=== PATIENT | female | born 2000 | race Two or more races ===

== ENCOUNTER → 2024-02-18 | Outpatient (BNVA) | payer BC, SELFPAY | END | disposition home or self-care (01) | PROVIDERS: PCP Nurse Practitioner Family; Referring Provider Nurse Practitioner Family; Visit Provider Nurse Practitioner Family | DX: Z71.2 Person consulting for explanation of examination or test findings (principal); Z13.828 Encounter for screening for other musculoskeletal disorder; R14.0 Abdominal distension (gaseous); K59.00 Constipation, unspecified; R11.0 Nausea; R20.2 Paresthesia of skin; R42 Dizziness and giddiness; Z13.220 Encounter for screening for lipoid disorders; Z13.1 Encounter for screening for diabetes mellitus | CPT/HCPCS: 90471; 90686; 99215 ==

== ENCOUNTER → 2024-02-20 | Outpatient (CLI) | payer BC, SELFPAY ==
--- NOTE | 2024-02-20 13:07 | XR_ITS ---
Examination: Scoliosis survey 2, views. Technique: AP standing thoracic, AP standing lumbar spine, two views. Exam date and time: February 20, 2024 1309 hours INDICATIONS: Back pain 2 years FINDINGS: No measurable scoliosis Adequate bone density Normal heart size Lungs are clear Intrauterine device lower pelvis Impression: No measurable scoliosis
== END | disposition home or self-care (01) ==
LOC: CDIM 13:01
PROVIDERS: PCP Nurse Practitioner Family; Referring Provider Nurse Practitioner Family; Visit Provider Nurse Practitioner Family
DX: Z13.828 Encounter for screening for other musculoskeletal disorder (principal); M54.9 Dorsalgia, unspecified
CPT/HCPCS: 72082

== ENCOUNTER → 2024-02-25 | Outpatient (BNVA) | payer BC, SELFPAY | END | disposition home or self-care (01) | PROVIDERS: PCP Nurse Practitioner Family; Referring Provider Nurse Practitioner Family; Visit Provider Nurse Practitioner Family | DX: Z71.2 Person consulting for explanation of examination or test findings (principal); D50.9 Iron deficiency anemia, unspecified; E55.9 Vitamin D deficiency, unspecified; B96.29 Other Escherichia coli [E. coli] as the cause of diseases classified elsewhere | CPT/HCPCS: 81001; 87804; 87811; 99215 ==

== ENCOUNTER → 2024-02-26 | Outpatient (CLI) | payer BC, SELFPAY ==
--- NOTE | 2024-02-26 | XR_ITS ---
Examination: PA lateral chest 2 views TECHNIQUE: Upright PA lateral chest 2 views Exam date and time: February 26, 2024 1245 hours Comparison May 14, 2023 INDICATIONS: Shortness of breath beginning 3 days ago. FINDINGS: Normal heart size Lungs are clear Mild chronic osteoporotic compressions lower dorsal vertebral bodies IMPRESSION: No active disease
== END | disposition home or self-care (01) ==
PROVIDERS: PCP Nurse Practitioner Family; Referring Provider Nurse Practitioner Family; Visit Provider Nurse Practitioner Family
DX: R50.9 Fever, unspecified (principal); R06.02 Shortness of breath
CPT/HCPCS: 71046

== ENCOUNTER → 2024-02-27 | Outpatient (BNVA) | payer BC, SELFPAY | END | disposition home or self-care (01) | PROVIDERS: PCP Nurse Practitioner Family; Referring Provider Nurse Practitioner Family; Visit Provider Nurse Practitioner Family | DX: Z71.2 Person consulting for explanation of examination or test findings (principal) | CPT/HCPCS: 99212 ==

== ENCOUNTER → 2024-03-17 | Outpatient (CLI) | payer BC, SELFPAY ==
--- NOTE | 2024-03-17 08:43 | XR_ITS ---
Examination: MRI brain without intravenous contrast. Date and time of exam: March 17, 2024 0916 hours INDICATIONS: Headaches dizziness blurred vision episodes beginning 3 months ago Technique: Multiple axial and sagittal images of the brain obtained. Siemens high-resolution 1.5 Marissa short bore scanners utilized. Sagittal sections, T1-weighted, TR 500, TE 14, are performed. Axial sections proton-density and T2-weighted have been obtained. Inversion recovery axial images, TR 9, 260, TE 111, TI 2500. Diffusion weighted images, axial sections, TR 4800, TE 128, B value 1000 Axial sections, ADC map, TR 4800, TE 128 Findings: Enlargement of the sella turcica is not present. The optic chiasm and infundibular are not remarkable. Prepontine and interpeduncular cisterns are not enlarged. There is no localized enlargement of the medulla or susie. Fourth ventricle and cerebellar tonsils appear normal in position. No subacute area of hemorrhage density is seen. Mass in the cerebellopontine angle region is not evident. Globes symmetrical. Orbital musculature including medial lateral rectus muscles do not exhibit abnormality. Diffusion-weighted images demonstrate no focus of restricted diffusion. Increased white matter signal not seen Mass effect upon the ventricular system is not identified. Impression: Negative for acute hemorrhage mass effect or midline shift No acute infarct No MR findings diagnostic for demyelinating disease
== END | disposition home or self-care (01) ==
PROVIDERS: PCP Nurse Practitioner Family; Referring Provider Nurse Practitioner Family; Visit Provider Nurse Practitioner Family
DX: R42 Dizziness and giddiness (principal)
CPT/HCPCS: 70551

== ENCOUNTER → 2024-03-21 | Outpatient (BNVA) | payer BC, SELFPAY | END | disposition home or self-care (01) | PROVIDERS: PCP Nurse Practitioner Family; Referring Provider Nurse Practitioner Family; Visit Provider Nurse Practitioner Family | DX: E66.01 Morbid (severe) obesity due to excess calories (principal); Z68.41 Body mass index [BMI] 40.0-44.9, adult; R73.03 Prediabetes; D50.9 Iron deficiency anemia, unspecified; E55.9 Vitamin D deficiency, unspecified; Z71.2 Person consulting for explanation of examination or test findings | CPT/HCPCS: 99213 ==

== ENCOUNTER → 2024-04-18 | Outpatient (BNVA) | payer BC, SELFPAY | END | disposition home or self-care (01) | PROVIDERS: PCP Nurse Practitioner Family; Referring Provider Nurse Practitioner Family; Visit Provider Nurse Practitioner Family | DX: E66.01 Morbid (severe) obesity due to excess calories (principal); Z68.41 Body mass index [BMI] 40.0-44.9, adult; R73.03 Prediabetes; Z71.3 Dietary counseling and surveillance | CPT/HCPCS: 99213 ==

== ENCOUNTER 2024-05-17 15:40 | Emergency (ER) | payer BC, SELFPAY ==
[2024-05-17 15:42] VITALS: BMI 41.5
[2024-05-17 16:23] VITALS: BP 100/62; PULSE 100; RESP 20; TEMP 36.5; O2SAT 99
--- NOTE | 2024-05-17 16:41 | XR_ITS ---
Examination: Abdomen sonogram, Limited Date and time of exam: May 17, 2024 1655 hrs. Indications: Right upper abdominal pain with nausea beginning 3 days ago Technique: Real-time osorio scale transabdominal sonographic images of the upper abdomen obtained. Findings: Multiple gallstones, the largest 19 mm Gallbladder wall 0.3 cm Common bile duct 0.2 cm Pancreatic head 3.1 cm Liver 18.8 cm lobular contour fatty infiltration no focal liver lesions Normal hepatopedal portal venous flow Patent IVC Impression: Cholelithiasis, negative for cholecystitis Hepatomegaly, fatty liver, primary hepatocellular disease
--- NOTE | 2024-05-17 16:44 | PD.EDRME ---
Rapid Medical Screening Exam RME Arrival date/time: 05/17/24 15:40 23-year-old female presents to the emergency department with complaints of right upper quadrant abdominal pain since Sunday. Associated with nausea vomiting. I have greeted and performed a focused initial assessment of this patient. Initial appropriate labs ordered at this time. A comprehensive ED assessment and evaluation of the patient and analysis of all test and completion of medical decision making process will be conducted by additional ED provider. Chief Complaint: Abdominal Pain Time Seen by Provider: 05/17/24 16:23 Vital signs: Vital Signs Temperature 97.7 F 05/17/24 16:23 Pulse Rate 100 05/17/24 16:23 Respiratory Rate 20 05/17/24 16:23 Blood Pressure 100/62 05/17/24 16:23 Pulse Oximetry (%) 99 05/17/24 16:23 Oxygen Delivery Method Room Air 05/17/24 16:23
[2024-05-17] MEDS: ONDANSETRON ODT 4 MG TABRAP PO (16:50)
[2024-05-17] MEDS: HYDROcodone/APAP 5/325 TABLET 1 TAB PO (16:50)
[2024-05-17 17:39] LABS: Basophils % (Auto) 0 % (0-2.5); Eosinophils # (Auto) 0.2 Thou/mm3 (0.0-0.5); Eosinophils % (Auto) 2 % (0-10); Hematocrit 32.9 % (36.0-46.0); Hemoglobin 9.6 g/dL (12.0-16.0); Immature Granulocytes % (Auto) 0 % (0-0); Immature Granulocytes Auto 0.03 Thou/mm3 (0.00-0.00); Lymphocytes # (Auto) 1.9 Thou/mm3 (1.0-4.8); Lymphocytes % (Auto) 15 % (10-50); Mean Corpuscular HGB Conc 29.2 g/dl (31.0-37.0); Mean Corpuscular Hemoglobin 17.9 pg (25.0-35.0); Mean Corpuscular Volume 61 fL (80-100); Monocytes # (Auto) 0.7 Thou/mm3 (0.0-0.8); Monocytes % (Auto) 6 % (0-12); Neutrophils # (Auto) 9.8 Thou/mm3 (1.8-7.7); Neutrophils % (Auto) 77 % (37-80); Nucleated Red Blood Cell % 0 /100 WBC (0); Platelet Count 432 Thou/mm3 (140-440); Red Blood Count 5.36 Miln/mm3 (4.00-5.20); White Blood Count 12.7 Thou/mm3 (3.6-11.0)
[2024-05-17 17:52] LABS: Alanine Aminotransferase 23 U/L (10-49); Albumin, Serum 4.4 gm/dL (3.5-5.0); Albumin/Globulin Ratio 1.5 (1.2-2.2); Alkaline Phosphatase 68 U/L (46-116); Anion Gap 9 (7-16); Aspartate Amino Transferase 18 U/L (0-34); BUN/Creatinine Ratio 14 Ratio (12-20); Bilirubin,Total 0.4 mg/dL (0.3-1.2); Blood Urea Nitrogen 15 mg/dL (9-23); Calcium 9.4 mg/dL (8.3-10.6); Calcium (Corrected) 9.4 mg/dL (8.5-10.1); Carbon Dioxide 24.3 mMol/L (20.0-31.0); Chloride 106 mMol/L (98-107); Creatinine (Component) 1.1 mg/dL (0.6-1.3); Estimated Creatinine Clearance 98.2 mL/min (>60); Globulin 2.9 gm/dL (2.3-3.5); Glucose 98 mg/dL (74-106); Lipase 34 U/L (12-53); Osmolality,Calculated 278 (275-295); Potassium 3.9 mMol/L (3.4-5.1); Sodium 139 mMol/L (136-145); Total Protein 7.3 gm/dL (5.7-8.2); eGFR > 60 See Note
[2024-05-17 18:26] LABS: Collection Type, Urine Clean Catch
[2024-05-17 18:34] LABS: Bacteria,Urine Rare; Bilirubin,Urine Negative (Negative); Blood,Urine Negative (Negative); Clarity,Urine Clear (Clear/Hazy); Color,Urine Yellow (Lt Yel-Yel); Glucose, Urine Negative (Negative); Ketones,Urine 1+ (Negative); Leukocyte Esterase,Urine Positive (Negative); Nitrite,Urine Negative (Negative); Protein,Urine Trace (Neg - Trace); RBC,Urine 6 /hpf (0-3); Specific Gravity,Urine 1.033 (1.001-1.035); Squamous Epithelial Cell,Urine 9 /hpf (0-5); Urobilinogen,Urine Negative mg/dL (0.0-1.0); WBC,Urine 2 /hpf (0-5)
[2024-05-17 18:38] LABS: HCG Qualitative,Urine Negative
--- NOTE | 2024-05-17 19:14 | EDNOTE_ITS ---
<Statement entered by Dorene Severino MD - 05/17/24 23:42> As co-signing physician, I was present and available for consult prn. I concur with the plan and care as documented by the midlevel provider. ED Abdominal Pain RME/HPI General Chief Complaint: Abdominal Pain Stated complaint: LR abdominal pain, right flank pain, constipation Time seen by provider: 05/17/24 16:23 Arrival date/time: 05/17/24 15:40 RME / HPI RME / HPI narrative: 23-year-old female patient came in for evaluation regarding right upper quadrant pain. Onset of symptoms since 3 days prior to ER visit as sudden onset of right upper quadrant pain, described as crampy, it comes and goes, radiating to the flank area. Also complained of nausea vomiting and constipation. Denies any other complaints or medications taken prior to arrival. Denies any fever. Related Data Previous Rx's ?Medication ?Instructions ?Recorded ergocalciferol (vitamin D2) 1,250 50,000 unit PO QWEEK 12 weeks #12 03/21/24 mcg (50,000 unit) capsule caps ferrous sulfate 325 mg (65 mg 325 mg PO QDAY #90 tabs 03/21/24 iron) tablet,delayed release dicyclomine 20 mg tablet 20 mg PO TID PRN abdominal p ain 05/17/24 #30 tabs ketorolac 10 mg tablet 10 mg PO Q8H PRN pain 5 days #20 05/17/24 tabs pantoprazole 40 mg tablet,delayed 40 mg PO QDAY #20 ta bs 05/17/24 release (Protonix) Allergies Allergy/AdvReac Type Severity Reaction Status Date / Time No Known Allergies Allergy Verified 04/18/24 15:49 Review of Systems Review of Systems Narrative Review of Systems: Review of system reviewed and within normal limits except mentioned in HPI ED Exam Narrative Physical exam: VITAL SIGNS: Reviewed. GENERAL APPEARANCE: Alert and interactive, follows commands, no acute distress, HEAD AND FACE: Non-traumatic. ENT: PERRL, pink conjunctivitis, eyelid no trauma, Mucous membrane moist. NECK: Supple, nontender, no nuchal rigidity. CHEST: No tenderness, no crepitus, no paradoxical movement, no retractions. LUNGS: Clear, well ventilated, symmetric, no rales, no wheezing, no ronchi, no stridor, good breath sounds bilaterally. HEART: Regular rate, regular rhythm, no murmur, no gallops. ABDOMEN: Soft, positive bowel sounds, nondistended, no guarding, right upper quadrant tenderness,, no rebound, no masses, RECTAL: Deferred. GENITAL: Deferred. NEUROLOGICAL: Gross motor function intact sensory function intact, Appropriate for age. MUSCULOSKELETAL: low back nontender, full range of motion. EXTREMITIES: Nontender, full range of motion. SKIN: Color pink, dry, no rash, no lacerations, no abrasions, no contusions. LYMPHATICS: Deferred. Course Quality Measures none Orders Category Date Time Status US gall bladder Stat Exams 05/17/24 16:41 Completed CBC Stat Lab 05/17/24 17:26 Completed Comprehensive Metabolic Panel Stat Lab 05/17/24 17:26 Completed HCG Qualitative,Urine Stat Lab 05/17/24 17:57 Completed Lipase Stat Lab 05/17/24 17:26 Completed Urinalysis Stat Lab 05/17/24 17:57 Completed HYDROcodone*/APAP 5/325 [Portis 5/325] Med 05/17/24 16:44 Discontinued 1 tab PO X1 ONE Ketorolac Inj [Toradol Inj] Med 05/17/24 18:47 Discontinued 30 mg IM X1 ONE Ondansetron Odt [Zofran Odt] Med 05/17/24 16:44 Discontinued 4 mg PO X1 ONE Vital Signs Vital signs: Vital Signs Temperature 97.7 F 05/17/24 16:23 Pulse Rate 100 05/17/24 16:23 Respiratory Rate 20 05/17/24 16:23 Blood Pressure 100/62 05/17/24 16:23 Pulse Oximetry (%) 99 05/17/24 16:23 Oxygen Delivery Method Room Air 05/17/24 16:23 Abdominal Pain MDM MDM Narrative MDM Narrative:: 23-year-old female patient came in for evaluation regarding right upper quadrant pain. Onset of symptoms since 3 days prior to ER visit as sudden onset of right upper quadrant pain, described as crampy, it comes and goes, radiating to the flank area. Also complained of nausea vomiting and constipation. Denies any other complaints or medications taken prior to arrival. Denies any fever. Ultrasound of gallbladder showed cholelithiasis with no sign of acute gastritis. Patient's workup today all came back with leukocytosis 12.7, CMP normal, LFTs normal total bili is normal urinalysis no UTI Results discussed with the patient. Patient received Portis and Toradol IM with significant improvement of pain. Patient was advised to follow-up with PCP and for referral to general surgeon for definitive management of the gallstone. Patient was also advised to return to emergency room if patient develop fever, worsening abdominal pain. Patient agrees with the plan. Patient data External records reviewed:: None Clinical information provided by:: none Social determinants that could affect healthcare access:: none Patient has the following chronic illnesses:: None How is presenting disease/condition affected by chronic disease/condition?: no chronic disease Evaluation data The following diagnostics were reviewed and interpreted by me:: lab results and radiology exam(s) Lab and/or radiology exams considered but not ordered:: None Interpretation Summary: See results in MDM Medications / Prescriptions Medications or Prescriptions considered but not ordered:: None Medication administrations:: Medication Administration History Discontinued Medications Hydrocodone Bitart/Acetaminophen (Hydrocodone/Apap 5/325 Tablet) 1 tab PO X1 ONE Stop: 05/17/24 16:45 Last Admin: 05/17/24 16:50 Dose: 1 tab Documented By: Ketorolac Tromethamine (Ketorolac Inj 30 Mg/Ml Vial) 30 mg IM X1 ONE Stop: 05/17/24 18:48 Ondansetron HCl (Ondansetron Odt 4 Mg Tabrap) 4 mg PO X1 ONE; Protocol Stop: 05/17/24 16:45 Last Admin: 05/17/24 16:50 Dose: 4 mg Documented By: Portis Toradol and Zofran Consultations Consultation(s) initiated? (list below): No Diagnosis Differential diagnosis abdominal pain: abdominal pain, constipation and pancreatitis Most likely diagnosis given after review of the tests above:: Biliary colic, gallstone Admission Indicated Admission indicated?: not indicated Admission Request Was there a request for admission?: No Disposition Plan Disposition Plan: Discharge Discharge Attestation Discharge Attestation: The patient was given an opportunity to ask questions and understood the discharge instructions. Discharge instructions specifically effects, indications for sooner follow up or return to the emergency department, and the expected course of current diagnosis. Patient condition: Stable Discharge Plan Plan Patient Disposition: HOME (Self Care) Disposition Comment: Stable Prescriptions/Referrals Prescriptions/Med Rec: New dicyclomine 20 mg tablet 20 mg PO TID PRN (Reason: abdominal pain) Qty: 30 0RF ketorolac 10 mg tablet 10 mg PO Q8H PRN (Reason: pain) 5 Days Qty: 20 0RF pantoprazole [Protonix] 40 mg tablet,delayed release (DR/EC) 40 mg PO QDAY Qty: 20 0RF No Action ergocalciferol (vitamin D2) 1,250 mcg (50,000 unit) capsule 50,000 unit PO QWEEK 84 Days Qty: 12 0RF ferrous sulfate 325 mg (65 mg iron) tablet,delayed release (DR/EC) 325 mg PO QDAY Qty: 90 0RF Rx Instructions: take fasting Referrals: Mirna [facility] [facility],Lissett Hood [employer] [Primary Care Provider] - In 1 week Problem List Clinical Impression: Gallstone Patient/Caregiver Discharge Instructions Discharge Activity: activity as tolerated Education Materials: ED Gallstones with Biliary Colic Additional Instructions: Thank you for the opportunity for serving you today. You are stable for discharged . You are advised to: Follow-up with your PCP in 1 to 2 days and as per referral to general surgeon Please avoid eating fatty, greasy fried food Return to ED for worsening of symptoms Increase oral fluids Take medication as prescribed Print Language: Chinese Stand Alone Forms: Britta Award Info., Patient Portal Info Letter PA/MANJU Supervising Physician AUSTEN/MANJU Supervising Physician: Md Dario
[2024-05-17] MEDS: KETOROLAC INJ 30 MG/ML VIAL IM (19:55)
== END 2024-05-17 19:59 | disposition home or self-care (01) ==
PROVIDERS: Nurse Practitioner Primary Care; Emergency Provider Emergency Medicine; PCP Nurse Practitioner Family
DX: K80.20 Calculus of gallbladder without cholecystitis without obstruction (principal)
CPT/HCPCS: 36415; 76705; 80053; 81001; 81025; 83690; 85025; 96372; 99284; J1885; Q0162; A9270

== ENCOUNTER → 2024-05-21 | Outpatient (BNVA) | payer BC, SELFPAY | END | disposition home or self-care (01) | PROVIDERS: PCP Nurse Practitioner Family; Referring Provider Nurse Practitioner Family; Visit Provider Nurse Practitioner Family | DX: Z76.89 Persons encountering health services in other specified circumstances (principal); Z71.2 Person consulting for explanation of examination or test findings | CPT/HCPCS: 99214 ==

== ENCOUNTER 2024-07-01 08:42 | Emergency (ER) | payer BC, SELFPAY ==
[2024-07-01 08:43] VITALS: BMI 43.2
--- NOTE | 2024-07-01 08:47 | XR_ITS ---
Examination: Abdomen sonogram, Limited Date and time of exam: July 01, 2024 0943 hrs. Indications: Right upper abdominal pain today, history gallstones Technique: Real-time osorio scale transabdominal sonographic images of the upper abdomen obtained. Findings: Multiple gallstones Gallbladder wall 0.3 cm no edema Common bile duct 0.3 cm Pancreatic head 2.1 cm Liver 17.4 cm fatty infiltration no focal liver lesions Normal hepatopedal portal venous flow Patent IVC Impression: Cholelithiasis, negative for cholecystitis Mild hepatomegaly fatty liver
[2024-07-01 08:49] VITALS: BP 155/95; PULSE 87; RESP 18; TEMP 36.4; O2SAT 100
--- NOTE | 2024-07-01 08:52 | PD.EDRME ---
Rapid Medical Screening Exam RME Arrival date/time: 07/01/24 08:42 23-year-old female presents to the emergency dept today complains of upper abdominal pain nausea vomiting patient reports history of cholelithiasis Chief Complaint: Back Pain/Injury Time Seen by Provider: 07/01/24 08:47 Vital signs: Vital Signs Temperature 97.6 F 07/01/24 08:49 Pulse Rate 87 07/01/24 08:49 Respiratory Rate 18 07/01/24 08:49 Blood Pressure 155/95 H 07/01/24 08:49 Pulse Oximetry (%) 100 07/01/24 08:49 Oxygen Delivery Method Room Air 07/01/24 08:49
[2024-07-01] MEDS: METOCLOPRAMIDE INJ 5 MG/ML VIAL 2 ML 10 MG IM (09:04)
[2024-07-01] MEDS: KETOROLAC INJ 30 MG/ML VIAL IM (09:04)
[2024-07-01 09:53] LABS: Collection Type, Urine Clean Catch
[2024-07-01 10:08] LABS: Basophils % (Auto) 0 % (0-2.5); Eosinophils # (Auto) 0.4 Thou/mm3 (0.0-0.5); Eosinophils % (Auto) 6 % (0-10); Hemoglobin 9.4 g/dL (12.0-16.0); Immature Granulocytes % (Auto) 0 % (0-0); Immature Granulocytes Auto 0.01 Thou/mm3 (0.00-0.00); Lymphocytes # (Auto) 2.4 Thou/mm3 (1.0-4.8); Lymphocytes % (Auto) 34 % (10-50); Mean Corpuscular HGB Conc 28.5 g/dl (31.0-37.0); Mean Corpuscular Volume 63 fL (80-100); Monocytes # (Auto) 0.3 Thou/mm3 (0.0-0.8); Monocytes % (Auto) 4 % (0-12); Neutrophils % (Auto) 56 % (37-80); Nucleated Red Blood Cell % 0 /100 WBC (0); Platelet Count 404 Thou/mm3 (140-440); RDW Standard Deviation 39.5 fL (36.4-46.3); Red Blood Count 5.23 Miln/mm3 (4.00-5.20); White Blood Count 7.2 Thou/mm3 (3.6-11.0)
[2024-07-01 10:11] LABS: Bacteria,Urine Rare; Bilirubin,Urine Negative (Negative); Blood,Urine 2+ (Negative); Clarity,Urine Clear (Clear/Hazy); Color,Urine Lt-Yellow (Lt Yel-Yel); Culture Indicated,Urine Not Indicated; Glucose, Urine Negative (Negative); Ketones,Urine Negative (Negative); Leukocyte Esterase,Urine Negative (Negative); Nitrite,Urine Negative (Negative); PH,Urine 5.5 (5.0-7.0); Protein,Urine Negative (Neg - Trace); RBC,Urine 46 /hpf (0-3); Specific Gravity,Urine 1.026 (1.001-1.035); Squamous Epithelial Cell,Urine 8 /hpf (0-5); Urobilinogen,Urine Negative mg/dL (0.0-1.0); WBC,Urine < 1 /hpf (0-5)
[2024-07-01 10:17] LABS: Alanine Aminotransferase 28 U/L (10-49); Albumin, Serum 4.2 gm/dL (3.5-5.0); Albumin/Globulin Ratio 1.6 (1.2-2.2); Alkaline Phosphatase 71 U/L (46-116); Anion Gap 8 (7-16); Aspartate Amino Transferase 23 U/L (0-34); BUN/Creatinine Ratio 11 Ratio (12-20); Bilirubin,Total 0.3 mg/dL (0.3-1.2); Blood Urea Nitrogen 10 mg/dL (9-23); Carbon Dioxide 24.9 mMol/L (20.0-31.0); Chloride 107 mMol/L (98-107); Creatinine (Component) 0.9 mg/dL (0.6-1.3); Estimated Creatinine Clearance 122.8 mL/min (>60); Globulin 2.7 gm/dL (2.3-3.5); Glucose 116 mg/dL (74-106); Lipase 34 U/L (12-53); Osmolality,Calculated 279 (275-295); Potassium 3.6 mMol/L (3.4-5.1); Sodium 140 mMol/L (136-145); Total Protein 6.9 gm/dL (5.7-8.2); eGFR > 60 See Note
[2024-07-01 10:47] LABS: HCG Qualitative,Urine Negative
--- NOTE | 2024-07-01 10:58 | EDNOTE_ITS ---
ED Abdominal Pain RME/HPI General Chief Complaint: Back Pain/Injury Stated complaint: GALLSTONE PAIN X1.5 HR Time seen by provider: 07/01/24 08:47 Arrival date/time: 07/01/24 08:42 RME / HPI RME / HPI narrative: 07/01/24 08:42 23-year-old female presents to the emergency dept today complains of upper abdominal pain nausea vomiting patient reports history of cholelithiasis DR. SEVERINO MAIN ED EVALUATION: 23 year old female presents to the Emergency Department with complaints of right upper quadrant pain and right flank pain since this morning. She denies any dysuria/ UTI symptoms. She has history of gallstones and has an outpatient appointment with Dr. Dumont for possible surgery. Related Data Previous Rx's ?Medication ?Instructions ?Recorded ferrous sulfate 325 mg (65 mg 325 mg PO QDAY #90 tabs 03/21/24 iron) tablet,delayed release dicyclomine 20 mg tablet 20 mg PO TID PRN abdominal p ain 05/17/24 #30 tabs pantoprazole 40 mg tablet,delayed 40 mg PO QDAY #20 ta bs 05/17/24 release (Protonix) Allergies Allergy/AdvReac Type Severity Reaction Status Date / Time No Known Allergies Allergy Verified 07/01/24 08:45 Review of Systems Review of Systems Systems Reviewed: All systems reviewed, normal except as documented Past Medical History Past Medical History CARDIAC: Positive Cardiac Disorders (PREECLAMPSIA) Family History FAMILY HISTORY: Positive Family Cardiac Disorders (MATERNAL AUNT (HEART ILLNESS)) Social History SMOKING STATUS: Never smoker SECOND HAND EXPOSURE: Yes SUBSTANCE USE: does not use ALCOHOL: Never ED Exam Narrative Physical exam: GENERAL APPEARANCE: alert and oriented x 4, well-developed, well-nourished, no acute distress VITALS: All vitals were reviewed and the pulse ox is 100% on room air, which is normal according to my interpretation. HEENT: Normocephalic, atraumatic; pupils equal, round, reactive to light; EOMI; mucous membranes pink, moist; oropharynx clear NECK: Supple LUNGS: CTABL; no wheezes, no rales, no rhonchi HEART: Regular rate, regular rhythm; normal S1, S2; no murmurs ABDOMEN: non distended; normal BS; soft, no tenderness, no guarding, no rebound; no masses, no organomegaly, no hernia BACK: no CVA tenderness EXTREMITIES: atraumatic; no edema NEUROLOGIC: awake; alert and oriented x4; cranial nerves II-XII grossly intact; no focal sensory or motor deficits PSYCHIATRIC: appropriate mood and affect SKIN: warm, dry, normal color; no rashes Course Quality Measures none Orders Category Date Time Status US gall bladder Stat Exams 07/01/24 08:47 Completed CBC Stat Lab 07/01/24 09:41 Completed Comprehensive Metabolic Panel Stat Lab 07/01/24 09:41 Completed HCG Qualitative,Urine Stat Lab 07/01/24 09:36 Completed Lipase Stat Lab 07/01/24 09:41 Completed UA, C/S IF [Urinalysis, C/S if Indicated] Stat Lab 07/01/24 09:36 Completed Ketorolac Inj [Toradol Inj] Med 07/01/24 08:52 Discontinued 30 mg IM X1 ONE Metoclopramide Inj [Reglan Inj] Med 07/01/24 08:52 Discontinued 10 mg IM X1 ONE Vital Signs Vital signs: Vital Signs Temperature 97.6 F 07/01/24 08:49 Pulse Rate 87 07/01/24 08:49 Respiratory Rate 18 07/01/24 08:49 Blood Pressure 155/95 H 07/01/24 08:49 Pulse Oximetry (%) 100 07/01/24 08:49 Oxygen Delivery Method Room Air 07/01/24 08:49 Abdominal Pain MDM MDM Narrative MDM Narrative:: I, Jia Michele, shanell scribing for and in the presence of Dr. Severino. Patient data External records reviewed:: [facility] previous records (Reviewed last ED visit dated 05/17/24, discharged with the following: Gallstone) Clinical information provided by:: patient Social determinants that could affect healthcare access:: none Patient has the following chronic illnesses:: gallstones How is presenting disease/condition affected by chronic disease/condition?: caused by Evaluation data The following diagnostics were reviewed and interpreted by me:: lab results and radiology exam(s) Lab and/or radiology exams considered but not ordered:: none Interpretation Summary: Procedure(s): US gall bladder Accession Number(s): [id number] cc: Leon (RUTH),Pee MIRANDA; Dhaval Kern MD; Lissett Bradley ([facility])~ Examination: Abdomen sonogram, Limited Date and time of exam: July 01, 2024 0943 hrs. Indications: Right upper abdominal pain today, history gallstones Technique: Real-time osorio scale transabdominal sonographic images of the upper abdomen obtained. Findings: Multiple gallstones Gallbladder wall 0.3 cm no edema Common bile duct 0.3 cm Pancreatic head 2.1 cm Liver 17.4 cm fatty infiltration no focal liver lesions Normal hepatopedal portal venous flow Patent IVC Impression: Cholelithiasis, negative for cholecystitis Mild hepatomegaly fatty liver Dictated By: Dhaval Kern MD Medications / Prescriptions Medications or Prescriptions considered but not ordered:: none Medication administrations:: Medication Administration History Discontinued Medications Ketorolac Tromethamine (Ketorolac Inj 30 Mg/Ml Vial) 30 mg IM X1 ONE Stop: 07/01/24 08:53 Last Admin: 07/01/24 09:04 Dose: 30 mg Documented By: RAMON Metoclopramide HCl (Metoclopramide Inj 5 Mg/Ml Vial 2 Ml) 10 mg IM X1 ONE; Protocol Stop: 07/01/24 08:53 Last Admin: 07/01/24 09:04 Dose: 10 mg Documented By: RAMON see above Consultations Consultation(s) initiated? (list below): No Diagnosis Differential diagnosis abdominal pain: abdominal pain, calculus of kidney and other (gallstones, biliary colic) Most likely diagnosis given after review of the tests above:: Acute right flank pain Biliary colic Cholelithiasis Admission Indicated Admission indicated?: not indicated Admission Request Was there a request for admission?: No Disposition Plan Disposition Plan: Discharge Discharge Attestation Discharge Attestation: The patient and all family members were given an opportunity to ask questions and understood the discharge instructions. Discharge instructions specifically effects, indications for sooner follow up or return to the emergency department, and the expected course of current diagnosis. Patient condition: Stable Discharge Plan Plan Patient Disposition: HOME (Self Care) Prescriptions/Referrals Prescriptions/Med Rec: No Action ferrous sulfate 325 mg (65 mg iron) tablet,delayed release (DR/EC) 325 mg PO QDAY Qty: 90 0RF Rx Instructions: take fasting dicyclomine 20 mg tablet 20 mg PO TID PRN (Reason: abdominal pain) Qty: 30 0RF pantoprazole [Protonix] 40 mg tablet,delayed release (DR/EC) 40 mg PO QDAY Qty: 20 0RF Referrals: Mirna [facility] [employer],Lissett Hood [employer] [Primary Care Provider] - In 1 week Problem List Clinical Impression: Acute right flank pain, Biliary colic, Cholelithiasis Patient/Caregiver Discharge Instructions Education Materials: ED Gallstones with Biliary Colic Additional Instructions: Follow up with outpatient referral to surgeon Print Language: Swedish Stand Alone Forms: Britta Award Info., Patient Portal Info Letter
== END 2024-07-01 11:26 | disposition home or self-care (01) ==
PROVIDERS: Nurse Practitioner Primary Care; Emergency Provider Emergency Medicine; PCP Nurse Practitioner Family
DX: K80.70 Calculus of gallbladder and bile duct without cholecystitis without obstruction (principal)
CPT/HCPCS: 36415; 76705; 80053; 81001; 81025; 83690; 85025; 96372; 99284; J1885; J2765

== ENCOUNTER → 2024-07-17 | Outpatient (BNVA) | payer BC, SELFPAY | END | disposition home or self-care (01) | PROVIDERS: PCP Nurse Practitioner Family; Referring Provider Nurse Practitioner Family; Visit Provider Nurse Practitioner Family | DX: D50.9 Iron deficiency anemia, unspecified (principal); Z71.2 Person consulting for explanation of examination or test findings; E55.9 Vitamin D deficiency, unspecified | CPT/HCPCS: 99212; G0463 ==

== ENCOUNTER 2024-07-22 06:35 | Day surgery (SDC) | payer BC, SELFPAY ==
[2024-07-21 06:48] VITALS: BMI 43.8
[2024-07-21 08:17] LABS: Alanine Aminotransferase 24 U/L (10-49); Albumin, Serum 4.3 gm/dL (3.5-5.0); Albumin/Globulin Ratio 1.5 (1.2-2.2); Alkaline Phosphatase 78 U/L (46-116); Anion Gap 7 (7-16); Aspartate Amino Transferase 22 U/L (0-34); BUN/Creatinine Ratio 14 Ratio (12-20); Basophils % (Auto) 1 % (0-2.5); Beta HCG,Quantitative < 1 mIU/mL (<5.0); Bilirubin,Total 0.3 mg/dL (0.3-1.2); Blood Urea Nitrogen 10 mg/dL (9-23); Calcium 9.1 mg/dL (8.3-10.6); Calcium (Corrected) 9.1 mg/dL (8.5-10.1); Carbon Dioxide 25.1 mMol/L (20.0-31.0); Chloride 106 mMol/L (98-107); Creatinine (Component) 0.7 mg/dL (0.6-1.3); Eosinophils # (Auto) 0.5 Thou/mm3 (0.0-0.5); Eosinophils % (Auto) 6 % (0-10); Estimated Creatinine Clearance 164.6 mL/min (>60); Globulin 2.8 gm/dL (2.3-3.5); Glucose 99 mg/dL (74-106); Hematocrit 34.9 % (36.0-46.0); Hemoglobin 10.1 g/dL (12.0-16.0); Immature Granulocytes % (Auto) 0 % (0-0); Immature Granulocytes Auto 0.03 Thou/mm3 (0.00-0.00); Lymphocytes # (Auto) 2.9 Thou/mm3 (1.0-4.8); Lymphocytes % (Auto) 38 % (10-50); Mean Corpuscular HGB Conc 28.9 g/dl (31.0-37.0); Mean Corpuscular Hemoglobin 18.5 pg (25.0-35.0); Mean Corpuscular Volume 64 fL (80-100); Monocytes # (Auto) 0.5 Thou/mm3 (0.0-0.8); Monocytes % (Auto) 6 % (0-12); Neutrophils # (Auto) 3.8 Thou/mm3 (1.8-7.7); Neutrophils % (Auto) 49 % (37-80); Nucleated Red Blood Cell % 0 /100 WBC (0); Osmolality,Calculated 274 (275-295); Platelet Count 485 Thou/mm3 (140-440); Potassium 3.7 mMol/L (3.4-5.1); RDW Standard Deviation 39.2 fL (36.4-46.3); Red Blood Count 5.47 Miln/mm3 (4.00-5.20); Sodium 138 mMol/L (136-145); Total Protein 7.1 gm/dL (5.7-8.2); White Blood Count 7.7 Thou/mm3 (3.6-11.0); eGFR > 60 See Note
[2024-07-21 08:32] LABS: Partial Thromboplastin Time 26.8 Seconds (22.0-36.0); Prothrombin Time 10.6 Seconds (9.0-12.2)
--- NOTE | 2024-07-21 14:58 | SUR.PREOP ---
Pt notified to come in at 0700 tomorrow for surgery.
[2024-07-22] VITALS (9 sets, daily range): BP systolic 116–160; BP diastolic 67–96; PULSE 72–106; RESP 18–20; TEMP 36.2–36.8; O2SAT 97–100; BMI 43.8
--- NOTE | 2024-07-22 11:07 | SUR.PHASEI ---
1107: Pt. AAOx4, vitals stable, breathing unlabored, no complaint of pain or nausea, x4 sites to ABD CDI, no active bleed noted, report received from MD Worthy and Boris YANEZ.
--- NOTE | 2024-07-22 11:09 | ESOP_ITS ---
Date of Procedure 07/22/24 Pre Op Diagnosis Symptomatic cholelithiasis Post Op Diagnosis Same Procedure Laparoscopic cholecystectomy Findings Patient is found to have 3 large stones and noninflamed gallbladder Procedure Description After endotracheal anesthesia was given the patient was placed in supine position and the abdomen was prepped with chloroprep solution and draped in a sterile manner. After time out was performed I injected a few cc of of half percent Marcaine with epinephrine below the umbilicus and I made an incision for about 3 cm in length. The fascia was cleaned and Veress needle was inserted to create a pneumoperitoneum up to 15 mmHg. Then introduced a 12 mm trocar that was along and a 10 mm camera through the fascia and I inspected the intra- abdominal organs as well as the gallbladder and the liver. Another 5 mm trocar was inserted in the epigastric region under direct vision after injecting some local anesthesia. At this time the patient was kept in reverse Trendelenburg position with the left lateral tilt. The third 5 mm trocar was inserted over the mid axillary line under direct vision and a Kristian and Lubna grasper was used to hold the fundus of the gallbladder. The retraction was carried out by the hospital clinic assistant moving the fundus of the gallbladder towards the right shoulder of the patient to create enough traction. I placed a another 5 mm trocar in the midaxillary line just lateral to the rectus muscle under direct vision. I used a fenestrated grasper to retract the neck of the gallbladder laterally towards the patient's right hip. The Calot's triangle was exposed and I achieved the critical view of safety as follows: I dissected out the fatty tissue from the hepatocystic triangle and cleared this area. I also dissected inferior and posterior to the gallbladder to identify the cystic duct and the gallbladder wall. Then superiorly I dissected along the cystic plate up to lower one third third of the gallbladder to lift the gallbladder from the liver. At this time I confirmed that only 2 structures entering the gallbladder were cystic artery and the cystic duct. The common duct was seen distally but no dissection was carried out around the duct. I did not see any need for operative cholangiogram in this patient. The cystic duct was clipped doubly and then divided and cystic artery was similarly dealt with. Then the gallbladder was removed from the liver bed using Harmonic gianni to control the small blood vessels as the dissection proceeded. Then the gallbladder was from the liver bed completely and delivered through the umbilical port using an Endopouch. The liver bed was coagulated with cautery to obtain satisfactory hemostasis. The trocars were pulled out from the abdominal cavity and the fascia at the umbilical incision was closed with interrupted 0 Ethibond. Subcutaneous tissues was closed with 3-0 chromic and injected a few cc of half percent Marcaine with epinephrine and the skin was closed with interrupted 4-0 nylon stitches at all the trocar sites. Dressing was applied with 2 x 2 and Tegaderm. Patient tolerated the procedure well and returned to recovery room in stable condition. Anesthesia GETA Pathology / specimen Other (Gallbladder and the stones) IVF Infused 1,000 Estimated Blood Loss 30 Condition Stable Disposition PACU Surgeon Lizett Phan MD Surgical Staff Operation Date: 07/22/24 09:00 Case Staff Anesthesiologist: Reinier Worthy Assisting Surgeon: Navleen. YANEZsurgical scrub technologist: Deangelo Connelly
[2024-07-22] MEDS: ONDANSETRON INJ 2 MG/ML INJ 2 ML 4 MG IV (11:29)
[2024-07-22] MEDS: fentaNYL CIT INJ 50 mCg/ML AMP 2ML 25 MCG IV ×3 (11:30→11:56)
[2024-07-22] MEDS: METOCLOPRAMIDE INJ 5 MG/ML VIAL 2 ML 10 MG IVP (11:56)
--- NOTE | 2024-07-22 12:15 | SUR.PHASEII ---
report received from asia jewell. discharge instructions gone over with pt. understanding verbalized. by pt and . signed by and nurse best. preparing for dc. nausea and pain controlled. will proceeded with discharge.
--- NOTE | 2024-07-22 12:19 | SUR.PHASEII ---
1219: Pt. AAOx4, vitals stable, breathing unlabored, no complaint of pain or nausea, x4 dressing to ABD CDI, no active bleed noted, pt. tolerated sips of soda well, pt. ambulated to wheelchair with steady gait and no assist, no complications. Gave discharge instructions to the pt. and her ride, both verbalized understanding and had no further questions. Pt. left with all personal belongings. Report given to Nighat YANEZ. Pt. dressed and ready to go, Nighat YANEZ took pt. down to her rides vehicle.
== END 2024-07-22 12:19 | disposition home or self-care (01) ==
PROVIDERS: PCP Nurse Practitioner Family; Referring Provider Surgery; Visit Provider Surgery
PROC: 0FT44ZZ Resection of Gallbladder, Percutaneous Endoscopic Approach (ICD-10-PCS; CPT 47562; principal; 2024-07-22 09:00)
DX: K80.10 Calculus of gallbladder with chronic cholecystitis without obstruction (principal); E66.01 Morbid (severe) obesity due to excess calories; Z68.41 Body mass index [BMI] 40.0-44.9, adult
CPT/HCPCS: 47562; 36415; 80053; 84702; 85025; 85610; 85730; A4217; A4649; J0131; J1100; J1885; J2250; J2405; J2704; J2765; J3010; J3490; A9270

== ENCOUNTER → 2024-07-31 | Outpatient (BNVA) | payer BC, SELFPAY | END | disposition home or self-care (01) | PROVIDERS: PCP Nurse Practitioner Family; Referring Provider Nurse Practitioner Family; Visit Provider Nurse Practitioner Family | DX: H92.09 Otalgia, unspecified ear (principal) ==

== ENCOUNTER 2024-08-02 16:16 | Emergency (ER) | payer BC, SELFPAY ==
[2024-08-02 16:27] VITALS: BP 136/86; PULSE 99; RESP 18; TEMP 36.8; O2SAT 99; BMI 44.1
--- NOTE | 2024-08-02 16:39 | XR_ITS ---
Examination: CT abdomen and pelvis without contrast. Coronal 3-D reconstructions. Sagittal 2-D reconstructions. Date and time of exam:August 02, 2024 2048 hours INDICATIONS: Onset abdominal pain today CTDI: vol (mGy): 18.8 DLP: (mGycm): 1136 Technique: Axial images of the abdomen have been obtained, 3 mm slice thickness Intravenous contrast material has not been administered. Low dose protocols were performed. One or more of the following dose reduction techniques were used; automated exposure control, adjustment of the mA and/or KV according to patient size, use of iterative reconstruction technique. Findings: A letter No pancreatic or adrenal mass Mild right hydronephrosis 6 mm distal right ureteral calculus Aorta normal size Normal appendix Thickening of the umbilical tract measuring 22 mm in thickness No bowel obstruction No pelvic mass Intrauterine device abnormally low in position the lower uterine segment IMPRESSION: Mild right hydronephrosis secondary to 6 mm distal right ureteral calculus Abnormally low position intrauterine device in the lower uterine segment
--- NOTE | 2024-08-02 16:40 | PD.EDRME ---
Rapid Medical Screening Exam RME Arrival date/time: 08/02/24 16:16 24-year-old female presents to the emergency department today for complaints of right flank pain and right abdominal pain patient reports that she had cholecystectomy 07/22 Chief Complaint: Back Pain/Injury Time Seen by Provider: 08/02/24 16:28 Vital signs: Vital Signs Temperature 98.3 F 08/02/24 16:27 Pulse Rate 99 08/02/24 16:27 Respiratory Rate 18 08/02/24 16:27 Blood Pressure 136/86 H 08/02/24 16:27 Pulse Oximetry (%) 99 08/02/24 16:27 Oxygen Delivery Method Room Air 08/02/24 16:27
[2024-08-02] MEDS: KETOROLAC INJ 30 MG/ML VIAL IM (16:49)
[2024-08-02] MEDS: ONDANSETRON ODT 4 MG TABRAP PO (16:50)
[2024-08-02 17:08] LABS: Basophils % (Auto) 0 % (0-2.5); Eosinophils # (Auto) 0.1 Thou/mm3 (0.0-0.5); Eosinophils % (Auto) 1 % (0-10); Hematocrit 32.9 % (36.0-46.0); Immature Granulocytes % (Auto) 0 % (0-0); Immature Granulocytes Auto 0.05 Thou/mm3 (0.00-0.00); Lymphocytes # (Auto) 2.5 Thou/mm3 (1.0-4.8); Lymphocytes % (Auto) 18 % (10-50); Mean Corpuscular HGB Conc 30.4 g/dl (31.0-37.0); Mean Corpuscular Hemoglobin 18.4 pg (25.0-35.0); Mean Corpuscular Volume 61 fL (80-100); Monocytes # (Auto) 0.6 Thou/mm3 (0.0-0.8); Monocytes % (Auto) 5 % (0-12); Neutrophils # (Auto) 10.3 Thou/mm3 (1.8-7.7); Neutrophils % (Auto) 76 % (37-80); Nucleated Red Blood Cell % 0 /100 WBC (0); Platelet Count 484 Thou/mm3 (140-440); RDW Standard Deviation 37.8 fL (36.4-46.3); Red Blood Count 5.43 Miln/mm3 (4.00-5.20); White Blood Count 13.5 Thou/mm3 (3.6-11.0)
[2024-08-02 17:29] LABS: Alanine Aminotransferase 20 U/L (10-49); Albumin, Serum 4.2 gm/dL (3.5-5.0); Albumin/Globulin Ratio 1.5 (1.2-2.2); Alkaline Phosphatase 78 U/L (46-116); Anion Gap 8 (7-16); Aspartate Amino Transferase 16 U/L (0-34); BUN/Creatinine Ratio 9 Ratio (12-20); Bilirubin,Total 0.5 mg/dL (0.3-1.2); Blood Urea Nitrogen 10 mg/dL (9-23); Calcium 8.7 mg/dL (8.3-10.6); Calcium (Corrected) 8.7 mg/dL (8.5-10.1); Carbon Dioxide 23.2 mMol/L (20.0-31.0); Chloride 107 mMol/L (98-107); Creatinine (Component) 1.1 mg/dL (0.6-1.3); Estimated Creatinine Clearance 100.7 mL/min (>60); Globulin 2.8 gm/dL (2.3-3.5); Glucose 100 mg/dL (74-106); Lipase 28 U/L (12-53); Osmolality,Calculated 274 (275-295); Potassium 3.7 mMol/L (3.4-5.1); Sodium 138 mMol/L (136-145); eGFR > 60 See Note
[2024-08-02 18:55] LABS: Collection Type, Urine Clean Catch
[2024-08-02 19:03] LABS: Bacteria,Urine Rare; Bilirubin,Urine Negative (Negative); Blood,Urine Trace (Negative); Clarity,Urine Turbid (Clear/Hazy); Color,Urine Yellow (Lt Yel-Yel); Culture Indicated,Urine Not Indicated; Glucose, Urine Negative (Negative); Ketones,Urine Negative (Negative); Leukocyte Esterase,Urine Negative (Negative); Nitrite,Urine Negative (Negative); Protein,Urine Trace (Neg - Trace); RBC,Urine 10 /hpf (0-3); Specific Gravity,Urine 1.031 (1.001-1.035); Squamous Epithelial Cell,Urine 4 /hpf (0-5); Urobilinogen,Urine Negative mg/dL (0.0-1.0); WBC,Urine 4 /hpf (0-5)
[2024-08-02 19:06] LABS: HCG Qualitative,Urine Negative
--- NOTE | 2024-08-02 23:25 | PD.EDABDPN ---
ED Abdominal Pain RME/HPI General Chief Complaint: Back Pain/Injury Stated complaint: BACK AND ABD PAIN Time seen by provider: 08/02/24 16:28 Arrival date/time: 08/02/24 16:16 24-year-old female presents to the ED with a complaint of right mid back pain and right flank pain radiating down to her right lower quadrant. She has had nausea and vomiting. She is status post cholecystectomy on 07/22/2024. She denies nausea, vomiting, or diarrhea. She denies fever or chills, upper respiratory complaints, cough, shortness of breath or chest pain. Source: patient Mode of arrival: ambulatory Limitations: no limitations RME / HPI RME / HPI narrative: 08/02/24 16:16 24-year-old female presents to the emergency department today for complaints of right flank pain and right abdominal pain patient reports that she had cholecystectomy 07/22 Related Data Home Medications ?Medication ?Instructions ?Recorded ?Confirmed No Known Home Medications 07/21/24 07/21/24 Allergies Allergy/AdvReac Type Severity Reaction Status Date / Time No Known Allergies Allergy Verified 08/02/24 16:20 Review of Systems Review of Systems Systems Reviewed: All systems reviewed, normal except as documented ED Exam Narrative Physical exam: Alert and oriented 24-year-old female mild to moderate acute distress noted. Lungs are clear, cardiovascular regular rate and rhythm without murmurs. Right CVA tenderness. No left CVA tenderness. Abdomen is soft with mild tenderness noted to the left lower quadrant, left upper quadrant, right upper quadrant secondary to recent cholecystectomy. Right flank tenderness radiating down to the right lower quadrant. She is afebrile and nontoxic appearing. General Limitations: Present no limitations Course Course Course Narrative: 24-year-old female presents to the ED with a complaint of right mid back pain and right flank pain radiating down to her right lower quadrant. She has had nausea and vomiting. She is status post cholecystectomy on 07/22/2024. She denies nausea, vomiting, or diarrhea. She denies fever or chills, upper respiratory complaints, cough, shortness of breath or chest pain. Alert and oriented 24-year-old female mild to moderate acute distress noted. Lungs are clear, cardiovascular regular rate and rhythm without murmurs. Right CVA tenderness. No left CVA tenderness. Abdomen is soft with mild tenderness noted to the left lower quadrant, left upper quadrant, right upper quadrant secondary to recent cholecystectomy. Right flank tenderness radiating down to the right lower quadrant. She is afebrile and nontoxic appearing. Labs reveal a mildly elevated white count of 13.5, H&H of 10.0/32.9 with microcytic Citic, hypochromic anemia. Platelets are elevated at 484. ANC elevated at 10.3. CMP reveals normal electrolytes, with glucose 100, calcium 8.7, normal LFTs and normal lipase 28. Urinalysis reveals turbid yellow urine with a specific gravity of 1.031. Negative nitrites, negative leukocyte Estrace, trace blood 10 RBCs, 4 WBCs, and rare bacteria. Urine hCG is negative. CT Abd/Pelvis revealed: Mild right hydronephrosis secondary to 6 mm distal right ureteral calculus and Abnormally low position intrauterine device in the lower uterine segment Patient was initially given Toradol and Zofran which wore off quickly. After she was brought to the main ED, patient was given sodium chloride 2 L as well as Flomax 0.4 mg p.o., and Reglan 10 mg IVP. Morphine 5 mg IVP was ordered however patient states that her pain is now significantly improved. She will be discharged home with Meloxicam, Flomax, and Zofran. Quality Measures Current suspected stage: ruled out Reason for ruling out sepsis: Afebrile, nontachycardic. Blood cultures ordered: no Antibiotic ordered: No sepsis Orders Category Date Time Status Insert IV NOW Care 08/03/24 01:[address] abdomen pelvis wo con Stat Exams 08/02/24 16:39 Completed CBC Stat Lab 08/02/24 16:50 Completed Comprehensive Metabolic Panel Stat Lab 08/02/24 16:50 Completed HCG Qualitative,Urine Stat Lab 08/02/24 18:40 Completed Lipase Stat Lab 08/02/24 16:50 Completed UA, C/S IF [Urinalysis, C/S if Indicated] Stat Lab 08/02/24 18:40 Completed Ketorolac Inj [Toradol Inj] Med 08/02/24 16:43 Discontinued 30 mg IM X1 ONE Metoclopramide Inj [Reglan Inj] Med 08/02/24 23:28 Discontinued 10 mg IVP X1 ONE Morphine Inj Med 08/02/24 23:28 Discontinued 5 mg IVP X1 ONE Ondansetron Odt [Zofran Odt] Med 08/02/24 16:43 Discontinued 4 mg PO X1 ONE Sodium Chloride 0.9% 1000 ml [Ns] 1,000 ml Med 08/02/24 23:29 Discontinued IV 999 mls/hr Tamsulosin HCl [Flomax] Med 08/02/24 23:28 Discontinued 0.4 mg PO X1 ONE Vital Signs Vital signs: Vital Signs Temperature 98.3 F 08/02/24 16:27 Pulse Rate 99 08/02/24 16:27 Respiratory Rate 18 08/02/24 16:27 Blood Pressure 136/86 H 08/02/24 16:27 Pulse Oximetry (%) 99 08/02/24 16:27 Oxygen Delivery Method Room Air 08/02/24 16:27 Abdominal Pain MDM Patient data External records reviewed:: None Clinical information provided by:: patient Social determinants that could affect healthcare access:: none Patient has the following chronic illnesses:: Prediabetes, iron deficiency anemia, obesity, recent laparoscopic cholecystectomy. How is presenting disease/condition affected by chronic disease/condition?: uneffected by Evaluation data The following diagnostics were reviewed and interpreted by me:: lab results and radiology exam(s) Lab and/or radiology exams considered but not ordered:: None Interpretation Summary: Labs reveal a mildly elevated white count of 13.5, H&H of 10.0/32.9 with microcytic Citic, hypochromic anemia. Platelets are elevated at 484. ANC elevated at 10.3. CMP reveals normal electrolytes, with glucose 100, calcium 8.7, normal LFTs and normal lipase 28. Urinalysis reveals turbid yellow urine with a specific gravity of 1.031. Negative nitrites, negative leukocyte Estrace, trace blood 10 RBCs, 4 WBCs, and rare bacteria. Urine hCG is negative. CT Abd/Pel: Findings: No pancreatic or adrenal mass Mild right hydronephrosis 6 mm distal right ureteral calculus Aorta normal size Normal appendix Thickening of the umbilical tract measuring 22 mm in thickness No bowel obstruction No pelvic mass Intrauterine device abnormally low in position the lower uterine segment IMPRESSION: Mild right hydronephrosis secondary to 6 mm distal right ureteral calculus Abnormally low position intrauterine device in the lower uterine segment Medications / Prescriptions Medications or Prescriptions considered but not ordered:: None Medication administrations:: Medication Administration History Discontinued Medications Sodium Chloride (Ns) 1,000 mls @ 999 mls/hr IV .Q1H1M ONE Stop: 08/03/24 00:29 Last Admin: 08/03/24 00:58 Dose: 999 mls/hr Documented By: FEDERICO Ketorolac Tromethamine (Ketorolac Inj 30 Mg/Ml Vial) 30 mg IM X1 ONE Stop: 08/02/24 16:44 Last Admin: 08/02/24 16:49 Dose: 30 mg Documented By: KATELIN Metoclopramide HCl (Metoclopramide Inj 5 Mg/Ml Vial 2 Ml) 10 mg IVP X1 ONE; Protocol Stop: 08/02/24 23:29 Last Admin: 08/03/24 01:02 Dose: 10 mg Documented By: FEDERICO Morphine Sulfate (Morphine Sulf Inj 10 Mg/Ml Vial) 5 mg IVP X1 ONE Stop: 08/02/24 23:29 Last Admin: 08/03/24 01:03 Dose: Not Given Documented By: FEDERICO Non-Admin Reason: Patient Refused Ondansetron HCl (Ondansetron Odt 4 Mg Tabrap) 4 mg PO X1 ONE; Protocol Stop: 08/02/24 16:44 Last Admin: 08/02/24 16:50 Dose: 4 mg Documented By: KATELIN Tamsulosin HCl (Tamsulosin Hcl 0.4 Mg Capsule) 0.4 mg PO X1 ONE Stop: 08/02/24 23:29 Last Admin: 08/03/24 01:03 Dose: 0.4 mg Documented By: FEDERICO Consultations Consultation(s) initiated? (list below): No Diagnosis Differential diagnosis abdominal pain: abdominal pain, acute appendicitis, calculus of kidney, diverticulitis and pancreatitis Most likely diagnosis given after review of the tests above:: Calculus of right kidney/ureter Admission Indicated Admission indicated?: not indicated Explain why admission is indicated or not indicated:: Patient is stable for discharge. Admission Request Was there a request for admission?: No Disposition Plan Disposition Plan: Discharge Discharge Attestation Discharge Attestation: The patient and all family members were given an opportunity to ask questions and understood the discharge instructions. Discharge instructions specifically effects, indications for sooner follow up or return to the emergency department, and the expected course of current diagnosis. Patient condition: Stable Discharge Plan Plan Patient Disposition: HOME (Self Care) Discharge Disposition comment: Stable and Improved Prescriptions/Referrals Prescriptions/Med Rec: No Action No Known Home Medications Referrals: No Primary/Family,Physician [Primary Care Provider] - In 1 week Problem List Clinical Impression: Calculus of kidney, Renal colic Patient/Caregiver Discharge Instructions Education Materials: ED Kidney Stone w/ Colic Print Language: Fijian Stand Alone Forms: Britta Award Info., Patient Portal Info Letter
[2024-08-03 00:13] VITALS: BP 126/73; PULSE 65; RESP 18; TEMP 36.5; O2SAT 96
--- NOTE | 2024-08-03 00:45 | PC.NURSE ---
Tier Lift Operator assumes care of patient at this time. Pt is A/O x 3 with c/o Right flank pain/Right lower abd pain that radiates into back. Pt denies any trauma, but states recent sx to have gallbladder removed within the last 2 weeks. No acute distress reported at this time or pain
[2024-08-03] MEDS: SODIUM CHLORIDE 0.9% 1000 ML 1,000 ML 999 ML IV (00:58)
[2024-08-03] MEDS: METOCLOPRAMIDE INJ 5 MG/ML VIAL 2 ML 10 MG IVP (01:02)
[2024-08-03] MEDS: TAMSULOSIN HCL 0.4 MG CAPSULE PO (01:03)
[2024-08-03 02:46] VITALS: BP 120/77; PULSE 75; RESP 18; TEMP 36.8; O2SAT 100
[2024-08-03 04:39] VITALS: BP 102/60; PULSE 73; RESP 18; TEMP 36.5; O2SAT 97
== END 2024-08-03 04:54 | disposition home or self-care (01) ==
PROVIDERS: Nurse Practitioner Primary Care; Emergency Provider Emergency Medicine
DX: N13.2 Hydronephrosis with renal and ureteral calculous obstruction (principal)
CPT/HCPCS: 36415; 74176; 80053; 81001; 81025; 83690; 85025; 96361; 96374; 99284; J1885; J2765; J7030; Q0162; A9270

== ENCOUNTER → 2024-08-04 | Outpatient (BNVA) | payer BC, SELFPAY | END | disposition home or self-care (01) | PROVIDERS: PCP Nurse Practitioner Family; Referring Provider Nurse Practitioner Family; Visit Provider Nurse Practitioner Family | DX: T83.39XA Other mechanical complication of intrauterine contraceptive device, initial encounter (principal); N20.0 Calculus of kidney; Z76.89 Persons encountering health services in other specified circumstances | CPT/HCPCS: 99214 ==

== ENCOUNTER 2024-10-07 09:25 | Outpatient (AMB) | payer BC, SELFPAY ==
[2024-10-07 09:57] VITALS: BP 120/86; PULSE 86; RESP 17; TEMP 36.6; O2SAT 97; BMI 44.4
--- NOTE | 2024-10-07 09:57 | AMB.GYNCLNOT ---
Vital Signs 10/07/24 09:57 Height 1.65 m Height Method Measured Weight 120.826 kg Weight Measurement Method Standing Scale BMI 44.4 BP 120/86 H Blood Pressure Source Automatic Cuff Blood Pressure Location Right Upper Arm Position Sitting Respiration 17 Pulse 86 Pulse Source Monitor Temp 97.9 F Temp Source Temporal Artery Scan Pulse Oximetry (%) 97 Oxygen Delivery Method Room Air Allergies/Home Meds Allergies & Medications Allergies No Known Allergies Allergy (Verified 10/07/24 09:58) Medication Reconciliation sulfamethoxazole 800 mg-trimethoprim 160 mg tablet (Bactrim DS) 1 tab PO BID 7 days #14 tabs 10/07/24 [Rx] Intake Visit Data Collection New Patient or Established: Established Patient (seen at [facility] within 3 years) Reason for Visit:: REFERRAL IUD REMOVAL CONSULT Consent obtained for Telemed Visit: No Seen by Clinical Staff ONLY (RN/MA): No Multiple Drum Sander Required: No Do You Feel Safe at Home: Yes Authorities Contacted: N/A PCP or OBGYN visit in last 3 months: Yes Date of Last PCP or OBGYN visit: 08/04/24 Hx Now: No Are you currently on any form of Control: Yes Last menstrual period: 09/19/24 Pain Present Currently: No Pain Scale Used: Saini-Isaacs/Numerical Pain scale:: 0 Smoking Status Smoking Status: Never smoker Behavioral Health Case Manager history Behavioral Health Case Manager History Menstrual regularity: regular Flow: normal Monthly: Yes How many days does period last: 5 Age at menarche: 11 Menopausal: No Currently sexually active: Yes 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 1. Little interest or pleasure in doing things: not at all PHQ-9 8. Moving or speaking so slowly that other people could have noticed? - Or the opposite - being so fidgety or restless that you have been moving around a lot more than usual: not at all Source: Developed by Drs. Yony Williamson, Wendy Estrada, Edin Faith and colleagues, with an educational imtiaz from [employer]. Social History Living Situation History Lives With: Spouse Housing: House Tobacco History Smoking Status: Never smoker Second Hand Smoke Exposure: Yes Alcohol History Alcohol Intake: Current Alcohol Intake Frequency: holidays/special occasions only Substance Use History Substance Use: NEVER Domestic Abuse History Do You Feel Safe at Home: Yes History of Present Illness HPI Narrative Rosalind Tom presents for removal of an intrauterine device (IUD) that was placed approximately 2 years ago after the of her son. The patient reports that her IUD, believed to be a 5-year Mirena, was placed by Dr. Jimenez after some difficulty during insertion. Initially, the IUD helped regulate her periods for about five months, but then her menstrual bleeding became heavy again. Recently, during a hospital visit for kidney stones, an ultrasound revealed that the IUD had dropped and was positioned very low in the uterus. This finding prompted her primary care physician, Dr. Del Cid, to refer her for IUD removal. The patient also mentions a recent history of gallbladder removal and kidney stones. During her hospital stay for kidney stones, she was diagnosed with a urinary tract infection and prescribed antibiotics. However, a recent urine dipstick test showed that the infection persists. The patient is unsure about the specific antibiotic regimen she received from the hospital in [place]. Rosalind expresses uncertainty about whether the IUD is the right contraceptive method for her, given the complications she has experienced. She recalls being recommended this method due to her history of miscarriages and previous use of depot injections, which had affected her ability to conceive. Obstetric History: - GTPAL: G2+ T1 + L1 - Delivered a son 2 years ago, currently living - History of miscarriages (number unspecified) Medical History: - Urinary tract infection, recently treated with antibiotics - Kidney stones, recently passed - History of miscarriages - Recent gallbladder removal Surgical History: - IUD placement approximately 2 years ago, after the of patient's son - IUD placement required two attempts due to insertion difficulties Medications and Supplements: - Antibiotics: Taken for 7 days, twice daily for urinary tract infection; completed course, but infection persists - Mirena IUD: Placed 2 years ago, initially helped with heavy periods for first few months, periods returned to being heavy after 5 months, removed during this visit due to low positioning - Depot shot: Taken when patient was younger Social History: - Children: Has a 2-year-old son ROS: Genitourinary: Positive for heavy menstrual periods. Exam Narrative Physical exam: - Gynecological: Speculum exam performed. IUD strings visualized. IUD removed from lower part of uterus. Office Procedures OB Clinic LOC & Office Proc's Nursing/Assessment Patient Status: Established Patient OB Clinic Nursing Assessment: Medication Reconciliation, Update PMH in EMR and Vital Signs OB Clinic Coordination of Care: Complex Care and Chronic Disease 1-5, Consent,records obtained, informed consent, Education Simp Pt/Fam and 4+ Authorizations needed Miscellaneous Interventions: Blood/Urine Collection Established Patient Charge Established Patient Point Assignment: 130 Established Patient Point Charge: EP Level 3 (80-115) Results Urine HCG Urine HCG Negative Last Edit by Cheryl Mendoza MA on 10/07/24 10:18 Assessment & Plan Diagnosis / Problem List (1) Pelvic and perineal pain: Status: Acute (2) Encounter for IUD removal: Status: Acute Plan Malpositioned Intrauterine Device (IUD) Assessment: 5-year Mirena IUD placed approximately 2 years ago. Recent ultrasound revealed low position. Initial improvement in menstrual symptoms for 5 months, followed by return of heavy periods. IUD was difficult to place initially, requiring two attempts. Plan: - Remove IUD during today's visit - Schedule follow-up ultrasound in one month to assess uterine anatomy - Defer decision on future contraception until after follow-up ultrasound and reassessment - Advise use of barrier method (condoms) for contraception in the interim - Patient to return in one month for ultrasound results review and contraception discussion Urinary Tract Infection (UTI) Assessment: Recent treatment with antibiotics for UTI diagnosed during hospitalization for kidney stones. Current urine dipstick shows persistent infection despite completion of antibiotic course. Plan: - Prescribe stronger antibiotic - Order urine culture and sensitivity - Review culture results and adjust antibiotic therapy if necessary based on sensitivity History of Miscarriages and Depot Medroxyprogesterone Acetate (DMPA) Use Assessment: History of miscarriages and previous use of DMPA ( double shot ). Concern that DMPA use may have affected ovulation for an extended period. Plan: - Discuss alternative contraceptive options at follow-up appointment, considering patient's history and recent IUD experience
== END 2024-10-07 10:58 | disposition home or self-care (01) ==
PROVIDERS: PCP Nurse Practitioner Family; Referring Provider Nurse Practitioner Family; Supervising Provider Obstetrics & Gynecology; Visit Provider Obstetrics & Gynecology
DX: R10.2 Pelvic and perineal pain (principal)
CPT/HCPCS: 99213; G0463

== ENCOUNTER → 2024-10-07 | Outpatient (CLI) | payer BC, SELFPAY | END | disposition home or self-care (01) | PROVIDERS: Referring Provider Obstetrics & Gynecology; Visit Provider Obstetrics & Gynecology | DX: N39.0 Urinary tract infection, site not specified (principal) | CPT/HCPCS: 87086 ==

== ENCOUNTER 2024-11-11 14:25 | Outpatient (AMB) | payer BC, SELFPAY ==
--- NOTE | 2024-11-11 14:34 | AMB.GYNCLNOT ---
Vital Signs 11/11/24 14:35 Height 1.65 m Height Method Stated Weight 124.738 kg Weight Measurement Method Standing Scale BMI 45.8 BP 120/83 Blood Pressure Source Automatic Cuff Blood Pressure Location Left Upper Arm Position Sitting Respiration 16 Pulse 85 Pulse Source Monitor Temp 98.2 F Temp Source Oral Pulse Oximetry (%) 98 Oxygen Delivery Method Room Air Allergies/Home Meds Allergies & Medications Allergies No Known Allergies Allergy (Verified 11/11/24 14:42) Medication Reconciliation No Known Home Medications 11/11/24 [History Confirmed 11/11/24] Intake Visit Data Collection New Patient or Established: Established Patient (seen at [facility] within 3 years) Reason for Visit:: DISCUSS CONTROL Seen by Clinical Staff ONLY (RN/MA): No Chief Architect Required: No Do You Feel Safe at Home: Yes Authorities Contacted: N/A PCP or OBGYN visit in last 3 months: Yes Hx Now: No Last menstrual period: 09/22/24 Pain Present Currently: No Pain Scale Used: Saini-Isaacs/Numerical Pain scale:: 0 Smoking Status Smoking Status: Never smoker Title I Math Tutor history Title I Math Tutor History Menstrual regularity: regular Flow: normal Monthly: Yes How many days does period last: 5 Age at menarche: 11 Currently sexually active: Yes GRAVEL HAULER: Past Medical History Past Medical History: No Hx Neurological Disorders, Yes Hx Cardiac Disorders (PREECLAMPSIA), No Hx Cancer, No Hx Blood Disorders, Yes Hx Anemia, No Hx Gastrointestinal Disorders, No Hx Renal Disease, No Hx Diabetes Mellitus Type 1 and No Hx Diabetes Mellitus Type 2 Questionnaires Covid-19 Vaccine Questionnaire Has patient been vacinated for Covid-19 Have you been vacinated for Covid-19: Yes PHQ-9 PHQ-2 Over the last 2 weeks, how often have you been bothered by any of the following problems? 1. Little interest or pleasure in doing things: not at all 2. Feeling down, depressed, or hopeless: not at all Total score: 0 PHQ-9 3. Trouble falling or staying asleep, or sleeping too much: Not at all 4. Feeling tired or having little energy: Not at all 5. Poor appetite or overeating: Not at all 6. Feeling bad about yourself - or that you are a failure or have let yourself or your family down: Not at all 7. Trouble concentrating on things, such as reading the newspaper or watching television: Not at all 8. Moving or speaking so slowly that other people could have noticed? - Or the opposite - being so fidgety or restless that you have been moving around a lot more than usual: not at all 9. Thoughts that you would be better off or of hurting yourself in some way: Not at all Total score: 0 Source: Developed by Drs. Yony Williamson, Wendy Estrada, Edin Faith and colleagues, with an educational imtiaz from [employer]. Depression screen completed yes Social History Living Situation History Lives With: Family Housing: House Tobacco History Smoking Status: Never smoker Second Hand Smoke Exposure: Yes Alcohol History Alcohol Intake: Current Alcohol Intake Frequency: holidays/special occasions only Substance Use History Substance Use: NEVER Domestic Abuse History Do You Feel Safe at Home: Yes Office Procedures OB Clinic LOC & Office Proc's Nursing/Assessment Patient Status: Established Patient OB Clinic Nursing Assessment: Medication Reconciliation, Update PMH in EMR and Vital Signs OB Clinic Coordination of Care: Complex Care and Chronic Disease 1-5, Consent,records obtained, informed consent, Education Simp Pt/Fam, Lab and Imaging orders, Results/Orders obtained and Staff clarify orders Established Patient Charge Established Patient Point Assignment: 105 Established Patient Point Charge: EP Level 3 (80-115) Assessment & Plan Diagnosis / Problem List (1) Acute vaginitis: Status: Acute
[2024-11-11 14:35] VITALS: BP 120/83; PULSE 85; RESP 16; TEMP 36.8; O2SAT 98; BMI 45.8
== END 2024-11-11 15:15 | disposition home or self-care (01) ==
LOC: HODSOBC 14:25
PROVIDERS: PCP Nurse Practitioner Family; Referring Provider Nurse Practitioner Family; Supervising Provider Obstetrics & Gynecology; Visit Provider Obstetrics & Gynecology
DX: N76.0 Acute vaginitis (principal)
CPT/HCPCS: 99213; G0463

== ENCOUNTER → 2025-03-17 | Outpatient (BNVA) | payer BC, SELFPAY | END | disposition home or self-care (01) | PROVIDERS: PCP Nurse Practitioner Family; Referring Provider Nurse Practitioner Family; Visit Provider Nurse Practitioner Family | DX: B35.0 Tinea barbae and tinea capitis (principal); H66.91 Otitis media, unspecified, right ear | CPT/HCPCS: 99213 ==

== ENCOUNTER 2025-03-18 22:32 | Emergency (ER) | payer BC, SELFPAY ==
[2025-03-18 22:35] VITALS: BMI 46.2
[2025-03-18 22:38] VITALS: BP 133/94; PULSE 122; RESP 20; TEMP 37.7; O2SAT 97
--- NOTE | 2025-03-18 22:51 | PD.EDEAR ---
ED Ear RME/HPI General Chief complaint: Ear Stated complaint: BILATERAL EAR PAIN Time Seen by Provider: 03/18/25 22:44 Arrival date/time: 03/18/25 22:32 24F with no significant PMH presents to ED with several days of bilateral ear pain. Patient was seen in clinic yesterday and given Augmentin. Patient is here because ibuprofen is not doing enough. Limitations: no limitations Related Data Previous Rx's ?Medication ?Instructions ?Recorded amoxicillin 875 mg-potassium 1 tab PO BID #14 tabs 03/17/25 clavulanate 125 mg tablet ibuprofen 600 mg tablet 600 mg PO Q8H PRN fever or pain 10 03/17/25 days #30 tabs ketoconazole 2 % shampoo 1 applic topical Q14D 30 days #120 03/17/25 mL [id number] 3.5 4 drp otic (ear) Q8H 10 days #10 mL 03/18/25 mg-10,000 unit/mL-1 % ear drops,susp Allergies Allergy/AdvReac Type Severity Reaction Status Date / Time No Known Allergies Allergy Verified 03/17/25 14:11 Review of Systems Review of Systems Systems Reviewed: All systems reviewed, normal except as documented ENT Ears, Nose, Mouth, and Throat: Reports as per HPI and Reports otalgia Past Medical History Past Medical History NEUROLOGIC: Negative Neurological Disorders or Seizures CARDIAC: Positive Cardiac Disorders (PREECLAMPSIA); Negative Congestive Heart Failure RESPIRATORY: Positive Asthma; Negative Chronic Obstructive Pulmonary Disease (COPD) GASTROINTESTINAL: Positive Gall Bladder Disease and Obesity; Negative Gastrointestinal Disorders or Hepatitis GENITOURINARY: Negative Genitourinary Disorders or Renal Disease REPRODUCTIVE: Positive Previous Pregnancies MUSCULOSKELETAL: Positive Musculoskeletal Disorders ENDOCRINE: Negative Endocrine Disorders, Diabetes Mellitus Type 1 or Diabetes Mellitus Type 2 HEMATOLOGIC: Positive Anemia; Negative Blood Disorders OTHER HISTORY: Negative Hospitalization, Autoimmune Disease, Down Syndrome, Shingles, Falls, Blood Transfusions, Blood Transfusion Reaction, Anesthesia Reactions, MRSA, VRSA, Vancomycin-Resistant Enterococci, Human Immunodeficiency Virus (HIV), Chicken Pox, Measles, Mumps, Rubella (Yi Measles), Pertussis, Clostridium Difficile or Cancer Family History FAMILY HISTORY: Positive Family Cardiac Disorders; Negative Family Psychiatric Problems, Family Respiratory Disorders, Family Gastrointestinal Problems, Family Cancer, Family Surgery or Family Anesthesia Reaction Surgical History SURGICAL: Positive Section (x1) Social History SMOKING STATUS: Never smoker SECOND HAND EXPOSURE: Yes SUBSTANCE USE: does not use ED Exam General Limitations: Present no limitations General appearance: Present alert and in no apparent distress Head Head exam: Present atraumatic ENT ENT exam: Present normal oropharynx and mucous membranes moist Expanded ENT Exam External ear exam: Present external tenderness (tragal tenderness) TM/Canal exam: Bilateral TM: canal discharge and canal tenderness Neck Neck exam: Present normal inspection, full ROM and trachea midline Chest Chest inspection: Present normal inspection and symmetric chest wall rise Neurological Exam Neurological exam: Present alert and oriented X3 Psychiatric Psychiatric exam: Present normal affect and normal mood Skin Skin exam: Present warm, dry, intact and normal color Course Quality Measures none Orders Category Date Time Status HYDROcodone*/APAP 5/325 [[place] 5/325] Med 03/18/25 22:44 Discontinued 1 tab PO X1 ONE Vital Signs Vital signs: Vital Signs Temperature 99.9 F 03/18/25 22:38 Pulse Rate 122 H 03/18/25 22:38 Respiratory Rate 20 03/18/25 22:38 Blood Pressure 133/94 H 03/18/25 22:38 Pulse Oximetry (%) 97 03/18/25 22:38 Oxygen Delivery Method Room Air 03/18/25 22:38 O2 at 97% on RA and WNLs Ear MDM Narrative MDM Narrative:: 24F with no significant PMH presents to ED with several days of bilateral ear pain. Patient was seen in clinic yesterday and given Augmentin. Patient is here because ibuprofen is not doing enough. Physical exam reveals bilateral canal tenderness and some discharge. TMs are normal on both sides. Patient is afebrile, alert, but appears uncomfortable. Meds and counseling services director given. This OE not OM. Patient data External records reviewed:: [facility] previous records Clinical information provided by:: patient Social determinants that could affect healthcare access:: none Patient has the following chronic illnesses:: none How is presenting disease/condition affected by chronic disease/condition?: no chronic disease Evaluation data The following diagnostics were reviewed and interpreted by me:: other (specify) (none) Lab and/or radiology exams considered but not ordered:: not ordered Interpretation Summary: n/a Medications / Prescriptions Medications or Prescriptions considered but not ordered:: ordered Medication administrations:: Medication Administration History Discontinued Medications Hydrocodone Bitart/Acetaminophen (Hydrocodone/Apap 5/325 Tablet) 1 tab PO X1 ONE Stop: 03/18/25 22:45 above Consultations Consultation(s) initiated? (list below): No Diagnosis Ear Differential Diagnosis: otitis externa, otitis media, foreign body in ear, ruptured TM and cerumen impaction Most likely diagnosis given after review of the tests above:: OE Admission Indicated Admission indicated?: not indicated Admission Request Was there a request for admission?: No Disposition Plan Disposition Plan: Discharge Discharge Attestation Discharge Attestation: The patient and all family members were given an opportunity to ask questions and understood the discharge instructions. Discharge instructions specifically effects, indications for sooner follow up or return to the emergency department, and the expected course of current diagnosis. Patient condition: Stable Discharge Plan Plan Patient Disposition: HOME (Self Care) Discharge Disposition comment: Stable Prescriptions/Referrals Prescriptions/Med Rec: New [id number]-[id number] 3.5-10,000-1 mg/mL-unit/mL-% drops,suspension 4 drp otic (ear) Q8H 10 Days Qty: 10 0RF No Action amoxicillin-pot clavulanate 875-125 mg tablet 1 tab PO BID Qty: 14 0RF ibuprofen 600 mg tablet 600 mg PO Q8H PRN (Reason: fever or pain) 10 Days Qty: 30 0RF ketoconazole 2 % shampoo 1 applic topical Q14D 30 Days Qty: 120 0RF Rx Instructions: Apply 5 to 10 mL to wet scalp, lather, leave on 3 to 5 minutes, and rinse; apply twice a week Problem List Clinical Impression: Otitis externa Patient/Caregiver Discharge Instructions Education Materials: ED External Ear Infection (Adult) Additional Instructions: Please follow-up with PCP within 24-48 hours and return immediately if symptoms worsen. Ibuprofen/Tylenol can be used simultaneously for greater fever/pain control. Try to keep drops in ear at least 1 min each time. Print Language: Citizen Of [place] Stand Alone Forms: Patient Portal Info Letter AUSTEN/MANJU Supervising Physician AUSTEN/MANJU Supervising Physician: Dr. Young
[2025-03-18] MEDS: HYDROcodone/APAP 5/325 TABLET 1 TAB PO (23:09)
== END 2025-03-18 23:23 | disposition home or self-care (01) ==
LOC: SERX 23:19
PROVIDERS: Emergency Provider Emergency Medicine; PCP Nurse Practitioner Family
DX: H60.93 Unspecified otitis externa, bilateral (principal)
CPT/HCPCS: 99281; A9270